=== PATIENT | male | born 1970 | race Caucasian/White ===

== ENCOUNTER 2023-01-31 09:44 | Outpatient (REF) | payer MEDICAID, SELFPAY ==
[2023-01-31 11:19] LABS: MANUAL DIFF FLAG NO
[2023-01-31 11:54] LABS: Basophils Absolute Auto 0.1 X10*3/uL (0.0-0.2); Basophils Percent Auto 1.2 % (0-2); Eosinophils Absolute Auto 0.2 X10*3/uL (0.0-0.4); Eosinophils Percent Auto 4.7 % (0-4); Hematocrit 29.4 % (42.0-52.0); Imm Gran Abs Auto 0.02 X10*3/uL (0.00-0.03); Imm Gran Pct Auto 0.4 % (0.0-0.4); Lymphocytes Absolute Auto 1.1 X10*3/uL (1.2-4.9); Lymphocytes Percent Auto 22.2 % (20-40); Mean Corpuscular HGB Conc 30.6 g/dl (31.0-36.0); Mean Corpuscular Volume 91.3 fL (80.0-98.0); Mean Platelet Volume 9.5 fL (9.4-12.4); Monocytes Absolute Auto 0.4 X10*3/uL (0.1-1.2); Monocytes Percent Auto 8.1 % (2-11); Neutrophils Absolute Auto 3.2 x10*3/uL (2.0-8.3); Neutrophils Percent Auto 63.4 % (45-73); Platelet Count 310 X10*3/uL (160-400); Red Blood Count 3.22 X10*6/uL (4.60-5.80); Red Cell Distribution Width 15.8 % (11.0-16.0); White Blood Count 5.1 X10*3/uL (4.8-10.8)
[2023-01-31 11:59] LABS: Prothrombin Time 12.1 SEC (11.1-13.3)
[2023-01-31 13:17] LABS: HIV AB/AG Nonreactive (Nonreactive); HIV Num 1 0.05 S/CO (0.00-0.99)
[2023-01-31 13:20] LABS: ~HepC Num1 7.01 S/CO (0.00-0.79); ~Hepatitis C Antibody Reactive (Nonreactive)
[2023-01-31 13:22] LABS: Alanine Aminotransferase 15 U/L (0-40); Albumin Level 3.1 g/dL (3.5-5.0); Alkaline Phosphatase 154 U/L (39-117); Aspartate Amino Transferase 38 U/L (5-37); Bilirubin Direct 0.3 mg/dL (0.0-0.5); Bilirubin Total 0.6 mg/dL (0.0-1.0); Blood Urea Nitrogen 11 mg/dL (9-16); Estimated Glomerular Filt Rate > 60; Total Protein 7.3 g/dL (6.5-8.0)
[2023-02-01 08:52] LABS: Syphilis Screen Nonreactive (Nonreactive)
[2023-02-02 15:59] LABS: HCV Log PCR <1.18 NOT DETECTED Log IU/mL (NOT DETECTED); HepC Viral Load <15 NOT DETECTED IU/mL (NOT DETECTED)
[2023-02-02 23:58] LABS: TS Negative Control Passed; TS Panel A 0; TS Panel B 0; TS Positive Control Passed; TSpotTB Negative (Negative)
[2023-02-06 15:34] LABS: FIB-ALT 14 U/L (9-46); FIB-Alpha-2-Macroglobulin 225 mg/dL (106-279); FIB-Apolipoprotein A1 124 mg/dL (94-176); FIB-GGT 110 U/L (3-95); FIB-Haptoglobin 134 mg/dL (43-212); FIB-Total Bilirubin 0.6 mg/dL (0.2-1.2); Liver Fibrosis Score 0.51; Liver Fibrosis Stage F2; Nec Inflam Act Grade A0; Nec Inflam Act Score 0.06
== END 2023-01-31 09:45 | disposition home or self-care (01) ==
LOC: HO.HHCL 09:44
PROVIDERS: Visit Provider Emergency Medicine
DX: Z11.4 Encounter for screening for human immunodeficiency virus [HIV] (principal); Z11.1 Encounter for screening for respiratory tuberculosis; F11.20 Opioid dependence, uncomplicated; F10.20 Alcohol dependence, uncomplicated
CPT/HCPCS: 36415; 80076; 81596; 82565; 84520; 85025; 85610; 86481; 86780; 86803; 87389; 87522

== ENCOUNTER 2023-02-28 11:46 | Outpatient (REF) | payer MEDICAID, SELFPAY ==
[2023-02-28 14:03] LABS: Cholesterol 104 mg/dL (<200); HDL Cholesterol 30 mg/dL (>40); LDL Cholesterol Calculated 56 mg/dL (<100); Triglycerides 91 mg/dL (<150)
[2023-02-28 14:20] LABS: TSH reflex Free T4 0.53 uIU/mL (0.32-4.0)
[2023-02-28 14:50] LABS: Microalbum/Creatinine Ratio Ur 6.1 ug/mg cr (<30)
== END 2023-02-28 11:47 | disposition home or self-care (01) ==
LOC: HO.HHCL 11:46
PROVIDERS: Visit Provider Family Medicine
DX: E11.65 Type 2 diabetes mellitus with hyperglycemia (principal); Z79.4 Long term (current) use of insulin
CPT/HCPCS: 36415; 80061; 82043; 84443

== ENCOUNTER 2023-04-25 13:58 | Outpatient (REF) | payer MEDICAID, SELFPAY ==
[2023-05-01 08:56] LABS: Buprenorphine NEGATIVE; Naloxone NEGATIVE; Norbuprenorphine NEGATIVE
== END 2023-04-25 13:59 | disposition home or self-care (01) ==
LOC: HO.HHCLNP 13:58
PROVIDERS: Visit Provider Emergency Medicine
DX: F11.20 Opioid dependence, uncomplicated (principal); F10.20 Alcohol dependence, uncomplicated
CPT/HCPCS: 80348; 80362

== ENCOUNTER 2023-06-13 10:55 | Outpatient (REF) | payer MEDICAID, SELFPAY ==
[2023-06-16 12:06] LABS: Amphetamine, Urine GC/MS NEGATIVE
== END 2023-06-13 10:56 | disposition home or self-care (01) ==
LOC: HO.HHCLNP 10:55
PROVIDERS: Visit Provider Emergency Medicine
DX: F11.20 Opioid dependence, uncomplicated (principal)
CPT/HCPCS: 80324

== ENCOUNTER 2023-10-02 11:00 | Outpatient (REF) | payer MEDICAID, SELFPAY ==
[2023-10-02 13:55] LABS: MANUAL DIFF FLAG NO
[2023-10-02 14:08] LABS: Basophils Absolute Auto 0.1 X10*3/uL (0.0-0.2); Basophils Percent Auto 0.8 % (0-2); Eosinophils Absolute Auto 0.5 X10*3/uL (0.0-0.4); Eosinophils Percent Auto 7.2 % (0-4); Hemoglobin 10.8 g/dl (14.0-18.0); Imm Gran Abs Auto 0.04 X10*3/uL (0.00-0.03); Imm Gran Pct Auto 0.5 % (0.0-0.4); Lymphocytes Absolute Auto 2.2 X10*3/uL (1.2-4.9); Lymphocytes Percent Auto 29.3 % (20-40); Mean Corpuscular HGB Conc 33.8 g/dl (31.0-36.0); Mean Corpuscular Hemoglobin 31.4 pg (27.0-33.0); Mean Platelet Volume 9.6 fL (9.4-12.4); Monocytes Absolute Auto 0.4 X10*3/uL (0.1-1.2); Monocytes Percent Auto 4.9 % (2-11); Neutrophils Absolute Auto 4.3 x10*3/uL (2.0-8.3); Neutrophils Percent Auto 57.3 % (45-73); Platelet Count 411 X10*3/uL (160-400); Red Blood Count 3.44 X10*6/uL (4.60-5.80); Red Cell Distribution Width 13.1 % (11.0-16.0); White Blood Count 7.5 X10*3/uL (4.8-10.8)
[2023-10-02 14:37] LABS: Creatinine Urine 26.25 mg/dL; Microalbumin Urine < 5.0 mg/L
[2023-10-02 15:02] LABS: Ferritin 82 ng/mL (20-250)
[2023-10-02 15:19] LABS: Folate 14.3 ng/mL (> or = 4.0); Vitamin B12 486 pg/mL (200-900)
[2023-10-02 15:37] LABS: Alanine Aminotransferase 16 U/L (0-40); Albumin Level 3.4 g/dL (3.5-5.0); Alkaline Phosphatase 131 U/L (39-117); Anion Gap 15 (12-20); Aspartate Amino Transferase 30 U/L (5-37); Bilirubin Total 0.4 mg/dL (0.0-1.0); Blood Urea Nitrogen 6 mg/dL (9-16); Calcium 9.3 mg/dL (8.4-10.2); Carbon Dioxide 28 mmol/L (22-29); Chloride 99 mmol/L (96-108); Cholesterol 89 mg/dL (<200); Estimated Glomerular Filt Rate > 60; Glucose Random 567 mg/dL (60-115); HDL Cholesterol 29 mg/dL (>40); Iron 22 mcg/dL (45-160); LDL Cholesterol Calculated 43 mg/dL (<100); Percent Iron Saturation 11 % (15-50); Potassium 3.7 mmol/L (3.3-5.1); Sodium 138 mmol/L (135-145); Total Iron Binding Capacity 202 mcg/dL (228-428); Total Protein 7.4 g/dL (6.5-8.0); Triglycerides 86 mg/dL (<150); Unsaturated Iron Binding 180 ug/dL
[2023-10-02 16:22] LABS: Reflex LDLD? No
== END 2023-10-02 11:01 | disposition home or self-care (01) ==
LOC: HO.HHCL 11:00
PROVIDERS: Visit Provider Family Medicine
DX: E11.65 Type 2 diabetes mellitus with hyperglycemia (principal); D63.8 Anemia in other chronic diseases classified elsewhere; Z79.4 Long term (current) use of insulin
CPT/HCPCS: 36415; 80053; 80061; 82043; 82570; 82607; 82728; 82746; 83540; 84443; 85025